=== PATIENT | female | born 1995 | race Two or more races ===

== ENCOUNTER 2024-12-19 15:17 | Inpatient (IN) ==
[2024-12-19] MEDS ORDERED: CALCIUM CARBONATE 500 MG CHEWABLE TAB PO PRN (15:21)
[2024-12-19] MEDS ORDERED: LIDOCAINE 1% LOCAL 20 ML VIAL INFIL PRN (15:21)
[2024-12-19] MEDS ORDERED: ACETAMINOPHEN 325 MG TAB PO PRN (15:21)
[2024-12-19] MEDS ORDERED: OXYTOCIN 30 UNITS/NSS 30 UNITS/500 ML BAG IV PRN (15:21)
--- NOTE | 2024-12-19 15:27 | History & Physical Report ---
Date of Service December 19, 2024 Assessment & Plan (1) IUFD at less than 20 weeks of gestation: Plan Patient has unexplained IUFD at 16 weeks. The risks and benefits of induction vs. D&E were discussed with the patient and her partner yesterday and today. They wish to proceed. Will continue to discuss issues with autopsy, holding baby, chromosomal analysis with them. Plan cytotec 400mcg q 3-4 hours until delivered. Discussed that, often, nothing much happens, and then suddenly, she is delivered. Discussed the potential of retained placenta and need for D&C. Discussed may have any type of pain management she desires. Questions answered to the best of my ability. Admission and Anticipated Discharge Date Admission Date: December 19, 2024 History of Present Illness Chief Complaint: iufd Primary Care Provider: NO PCP Patient is a 3oyo with iufd diganosed yesterday in the office at 16 4/7 weeks. Measuring 15 4/7 weeks. Patient is asymptomatic. Patient was offered options of induction and D&E. She presents today for induction. OB Labs: Blood Type A Positive 05/17/24 Antibody Screen NEGATIVE 05/17/24 Hgb 14.8 g/dl (12.0-16.0) 05/17/24 Hct 42.6 % (37.0-47.0) 05/17/24 MCV 85.0 fL (80.0-100.0) 05/17/24 Plt Count 293 K/uL (130-400) 05/17/24 Rubella IgG Antibody Pending 10/29/24 Treponema pallidum Ab Pending 10/29/24 Hep Bs Antigen Pending 10/29/24 Hepatitis C Antibody Pending 10/29/24 HIV 1&2 Ab/P24 Ag 4thGn Pending 10/29/24 gc/ct negative. Allergies Allergy/AdvReac Type Severity Reaction Status Date / Time No Known Allergies Allergy Verified 12/18/24 13:04 Home Medications Medication Instructions Recorded Confirmed Type folic acid PO 10/21/24 12/18/24 History 21-iron fu-folic acid PO 10/21/24 12/18/24 History [ Complete] Patient History Medical History Varicella vaccination Surgical History No pertinent past surgical history Family History Denies family history of Ovarian cancer Prostate cancer Breast cancer Colorectal cancer Social History Smoking Status: Never smoker Do You Dip or Chew Tobacco: No; Hx Alcohol Use: No Hx Substance Use: No Preferred Language: Kosovan Communication Ability: Effective School [employer] Media Specialist Required: No Beliefs That Will Affect Care: None marital status: marital status details: Esther Harding (40) [phone] Current Living Situation: Spouse and Family Current Living Situation Comment: lives with spouse, 2 children, no pets current occupational status: employed 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 Date GA wks Lbr Lgth wt Sex Type del Anes Place Del Prov ? Comment 08/10/18 42 8 M Epidural Ot her AWA Lo N IOL post dates 08/19/20 41 6 M Epidural Ot her AWA Lo N IOL post dates [employer] History noncontributory Physical Exam Constitutional: WD/WN, vitals as above Gastrointestinal (Abdomen): soft, nt, nd Psychiatric: A+Ox3, euthymic affect Genitourinary: cx--ft/50/-2 toco--none Coding Level of Care Code None Diagnoses IUFD at less than 20 weeks of gestation O02.1
[2024-12-19 15:55] LABS: Hematocrit (blood only) 37.4 % (37.0-47.0); Hemoglobin 13.4 g/dl (12.0-16.0); Mean Corpuscular Hemoglobin 30.2 pg (25.0-34.0); Mean Corpuscular Volume 84.4 fL (80.0-100.0); Platelet Count 252 K/uL (130-400); RDW Standard Deviation 37.6 fL (36.4-46.3); Red Blood Count 4.43 M/uL (4.20-5.40); White Blood Count 9.91 K/ul (4.8-10.8)
[2024-12-19] MEDS ORDERED: Nursing to Pharmacy Communication SCH (18:15)
[2024-12-19] MEDS: LACTATED RINGER'S 1,000 ML IV PRN (23:01)
[2024-12-19] MEDS ORDERED: ONDANSETRON INJ 2 MG/ML 2 ML VIAL IV PRN (23:19)
[2024-12-19] MEDS ORDERED: SODIUM CHLORIDE 0.9% PF INJ 10 ML VIAL EPI PRN (23:19)
[2024-12-19] MEDS ORDERED: fentANYL 2 MCG/ML BUPIVacaine 0.125%-NSS 100ML BAG EPI PRN (23:19)
[2024-12-19] MEDS ORDERED: BUPIVACAINE 0.25% PF 30 ML VIAL EPI PRN (23:19)
[2024-12-19] MEDS ORDERED: BUPIVACAINE 0.25% PF 30 ML VIAL EPI STA (23:19)
[2024-12-19] MEDS ORDERED: NALOXONE HCL 1 MG in SODIUM CHLORIDE 0.9% 1,000 ML IV PRN (23:19)
[2024-12-19] MEDS ORDERED: LIDOCAINE 2% MPF LOCAL 5 ML VIAL EPI PRN (23:19)
[2024-12-19] MEDS ORDERED: LIDOCAINE 2%/EPINEPHRINE 1:200,000 20 ML PF EPI STA (23:19)
[2024-12-19] MEDS ORDERED: SODIUM CHLORIDE 0.9% PF INJ 10 ML VIAL EPI STA (23:19)
[2024-12-19] MEDS ORDERED: NALOXONE HCL 0.4 MG/1 ML VIAL/CARP IV PRN (23:19)
[2024-12-19] MEDS ORDERED: NALBUPHINE HCL INJ 10 MG/ML AMP IV PRN (23:19)
[2024-12-19] MEDS ORDERED: diphenhydrAMINE 50 MG/ML VIAL IV PRN (23:19)
[2024-12-19] MEDS ORDERED: ROPIVACAINE 0.5% PF 5 MG/ML 20 ML VIAL EPI PRN (23:19)
--- NOTE | 2024-12-19 23:21 | Anesthesiology Consultation ---
Date of Service December 19, 2024 Assessment & Plan (1) Encounter for pre-operative examination: Chart Review Chart Review: Patient NOT seen in Pre Admission Testing and Acceptable Risk for Labor Epidural Consults Requested none History Height/Weight Height: 5 ft Weight: 76.657 kg Allergies Allergy/AdvReac Type Severity Reaction Status Date / Time No Known Allergies Allergy Verified 12/18/24 13:04 Medications Home Medications Medication Instructions Recorded Confirmed Last Taken folic acid PO 10/21/24 12/18/24 Unknown 21-iron fu-folic acid PO 10/21/24 12/18/24 Unknown [ Complete] Active Medications Generic Name Dose Route Start Last Admin Trade Name Freq PRN Reason Stop Dose Admin Lactated Ringer's 1,000 mls @ 125 mls/hr 12/19/24 15:21 12/19/24 23:30 Lr IV 12/21/24 15:20 125 mls/hr .Q8H PRN Infusion L&D Protocol Protocol Misoprostol 400 mcg 12/20/24 00:00 12/19/24 23:08 Misoprostol 200 Mcg Tab PV 01/19/25 00:00 400 mcg Q4 ALONSO Administration Past Medical History Medical History (Updated 12/19/24 @ 23:21 by Noam Mcdaniel MD) Encounter for pre-operative examination Varicella vaccination Exercise / Class Metabolic Activity II 4-5 Yardwork/Stairs/Walk up hill Past Family History Family History Denies family history of Ovarian cancer Prostate cancer Breast cancer Colorectal cancer Past Surgical History Surgical History No pertinent past surgical history Social History Smoking Status: Never smoker Do You Dip or Chew Tobacco: No Hx Alcohol Use: No Hx Substance Use: No Physical Exam Vital Signs Last Vital Signs Temp 36.5 C 12/19/24 23:02 Pulse 93 H 12/19/24 23:58 Resp 18 12/19/24 23:02 BP 113/69 12/19/24 23:58 Pulse Ox 99 12/19/24 23:58 Testing Laboratory Results 12/19/24 15:37 Blood Type A Positive 12/19/24 15:37 Antibody Screen NEGATIVE 12/19/24 15:37
[2024-12-19] MEDS: BUPIVACAINE 0.25% PF 30 ML VIAL ONE (23:59)
[2024-12-19] MEDS: LIDOCAINE 2%/EPINEPHRINE 1:200,000 20 ML PF ONE (23:59)
[2024-12-20] MEDS: fentANYL 2 MCG/ML BUPIVacaine 0.125%-NSS 100ML BAG ONE (00:04)
[2024-12-20] MEDS: SODIUM CHLORIDE 0.9% PF INJ 10 ML VIAL ONE (00:18)
--- NOTE | 2024-12-20 03:17 | Labor Progress Brief Note ---
Date of Service December 20, 2024 Subjective comfortable with epidural Assessment & Plan (1) IUFD at less than 20 weeks of gestation: Plan third dose of 400mcg cytotec placed vaginally. tolerating well. Admission and Anticipated Discharge Date Admission Date: December 19, 2024 Physical Exam Physical Exam: cx--1.5/75/-2 Results & Data Vital Signs (Past 12 Hours) Vital Signs Temp Pulse Resp BP Pulse Ox 12/20/24 03:14 82 100/63 12/20/24 03:13 80 100 12/20/24 03:08 70 95 12/20/24 03:03 64 96 12/20/24 02:59 75 100/64 12/20/24 02:58 70 94 12/20/24 02:56 70 94 12/20/24 02:53 69 94 12/20/24 02:51 69 94 12/20/24 02:48 71 95 12/20/24 02:45 70 94 12/20/24 02:44 68 100/55 L 12/20/24 02:43 71 95 12/20/24 02:39 72 94 12/20/24 02:38 77 95 12/20/24 02:33 73 94 12/20/24 02:29 73 102/56 L 12/20/24 02:28 78 94 12/20/24 02:25 75 94 12/20/24 02:23 78 94 12/20/24 02:18 78 94 12/20/24 02:14 75 98/56 L 12/20/24 02:13 73 94 12/20/24 02:12 72 94 12/20/24 02:08 68 95 12/20/24 02:07 69 94 12/20/24 02:03 71 95 12/20/24 01:59 81 96/55 L 12/20/24 01:58 71 96 12/20/24 01:54 72 94 12/20/24 01:53 70 95 12/20/24 01:48 72 97 12/20/24 01:45 88 91 12/20/24 01:44 76 97/57 L 12/20/24 01:43 70 95 12/20/24 01:38 73 96 12/20/24 01:33 72 95 12/20/24 01:29 74 98/59 L 12/20/24 01:28 71 96 12/20/24 01:27 75 94 12/20/24 01:23 70 97 12/20/24 01:19 72 94 12/20/24 01:18 71 96 12/20/24 01:14 100 H 97/55 L 12/20/24 01:13 72 95 12/20/24 01:09 74 94 12/20/24 01:08 71 96 12/20/24 01:03 72 96 12/20/24 00:59 73 100/60 12/20/24 00:58 73 96 12/20/24 00:53 73 97 12/20/24 00:48 74 96 12/20/24 00:43 74 97 12/20/24 00:42 73 102/56 L 12/20/24 00:38 79 98 12/20/24 00:37 74 110/60 12/20/24 00:33 78 98 12/20/24 00:32 82 107/63 12/20/24 00:28 79 97 12/20/24 00:27 78 97/64 L 12/20/24 00:23 90 99 12/20/24 00:18 84 96 12/20/24 00:13 88 98 12/20/24 00:08 77 97/55 L 98 12/20/24 00:06 82 94/55 L 12/20/24 00:04 77 100/58 L 12/20/24 00:03 85 98 12/20/24 00:02 88 105/55 L 12/20/24 00:00 86 112/60 12/19/24 23:58 93 H 12/19/24 23:58 89 113/69 99 12/19/24 23:53 99 H 98 12/19/24 23:48 98 H 98 12/19/24 23:43 102 H 99 12/19/24 23:38 96 H 97 12/19/24 23:33 91 H 98 12/19/24 23:02 36.5 C 74 18 102/68 12/19/24 19:04 36.8 C 99 H 18 110/68 12/19/24 15:46 99 H 115/71 12/19/24 15:39 36.7 C 20 Coding Level of Care Code None Diagnoses IUFD at less than 20 weeks of gestation O02.1
[2024-12-20] MEDS ORDERED: OXYTOCIN 30 UNITS/NSS 30 UNITS/500 ML BAG IV PRN (07:00)
[2024-12-20] MEDS ORDERED: HYDROCORTISONE ACETATE 25 MG SUPP PR PRN (07:00)
[2024-12-20] MEDS ORDERED: BENZOCAINE 20% SPRY 85 APPLN/85 GM CAN EXT PRN (07:00)
[2024-12-20] MEDS ORDERED: ACETAMINOPHEN 325 MG TAB PO PRN (07:00)
[2024-12-20] MEDS ORDERED: IBUPROFEN 600 MG TAB PO PRN (07:00)
--- NOTE | 2024-12-20 07:01 | Delivery Summary ---
Vaginal Delivery Summary Date of Service December 20, 2024 Vaginal Delivery Summary Pre-operative Diagnosis: iufd at 16 weeks Post-operative Diagnosis: same Procedure: cytotec en cul EBL: 100 Anesthesia: epidural Procedure: Patient presented to labor and delivery for iol for iufd. she received three doses. The patient called out and i was called to the room. PUlling back her covers, the had delivered en cul with placenta. Cervix/sulci/rectum/perineum were intact. Vagina explored and KATIE was explored and a small amount of clot was removed. hemostasis was good. Mother doing well at the end of the delivery. [facility] Vaginal Delivery Charge Delivery Type Details:
[2024-12-20 07:10] VITALS: O2SAT 97
[2024-12-20 07:24] VITALS: TEMP 98.6
--- NOTE | 2024-12-20 08:34 | Communication Note ---
Date of Service: December 20, 2024 Patient doing well. Bleeding is minimal. Ultrasound appears to NOT have any obvious pocs noted, just clot, no blood flow. Will remove epidural and d/c when ready. f/u in office in 7-10 days. Gross examination of the fetus reveals no obvious abnormalities. Patient declining autopsy or chromosomal analysis.
--- NOTE | 2024-12-20 08:36 | Anesthesia Procedure Note ---
Date of Service December 20, 2024 Anesthesia Post Epidural Note Vital Signs Vital Signs: Temp Pulse Resp BP Pulse Ox 37.0 C 75 18 100/51 L 97 12/20/24 06:50 12/20/24 08:23 12/20/24 07:50 12/20/24 08:23 12/20/24 07:13 Notes Mental Status: alert / awake / arousable and participated in evaluation Nausea / Vomiting: adequately controlled Pain: adequately controlled Airway Patency, RR, SpO2: stable & adequate BP & HR: stable & adequate Hydration State: stable & adequate Neuraxial Anesthesia: was administered and sensory block is resolving Anesthetic Complications: no major complications apparent and Pt Satisfied with anesthetic care Epidural: Removed without complications and With tip intact
--- NOTE | 2024-12-20 08:49 | Ultrasound Report ---
US OB limited CLINICAL HISTORY: delivered iufd, check for retained placenta COMPARISON STUDY: 10/29/2024 FINDINGS: Uterus measures 16 x 6 x 9 cm. Endometrium measures 3.5 cm thickness and is diffusely heter ogeneous, consistent with state with mild retained clot. No vascular flow seen within the thickened endometrium.. No significant endometrial fluid or significant retained placenta seen. Neith er ovary is visualized. No significant pelvic free fluid seen. IMPRESSION: 1. Thickened heterogeneous endometrium likely represents state and retained clot. 2. No vascular flow seen to suggest retained placenta. If clinical symptoms do not improve, follow-up would be suggested. ACT 112: Negative or not required by law. Electronically signed by: Joseph Saini M.D. 12/20/2024 8:48 AM
[2024-12-20] MEDS: DOCUSATE SODIUM 100 MG CAP PO SCH (09:41)
[2024-12-20] MEDS: PRENATAL VITAMIN 1 TAB PO SCH (09:41)
[2024-12-20 11:47] VITALS: BP 107/50; PULSE 78
[2024-12-20 12:05] VITALS: RESP 18
== END 2024-12-20 15:00 | disposition home or self-care (01) | DRG 779 ==
LOC: 4S1 15:17